=== PATIENT | female | born 1955 | race Caucasian/White ===

== ENCOUNTER 2022-08-05 22:49 | Emergency (ER) | payer MEDICARE, MEDICAID, SELFPAY ==
[2022-08-05 22:44] VITALS: BP 140/66; PULSE 80; RESP 18; TEMP 36.6; O2SAT 97
--- NOTE | 2022-08-05 22:45 | DI.CT_ITS ---
Exam(s) CT ABDOMEN PELVIS CTA EXAM: CT ABDOMEN PELVIS CTA CLINICAL HISTORY: epigastric and abd pain, eval GB and mesentery. TECHNIQUE: Imaging Protocol: Axial CT angiography was performed with multi-slice acquisition and m ulti-planar and/or 3D reconstructions. CONTRAST MATERIAL: Intravenous: Omnipaque 350 Contrast volume:100mL Oral: No COMPARISON: No exams were available for comparison FINDINGS: ABDOMEN AND PELVIS: Abdomen: Celiac axis/mesenteric arteries: No evidence of occlusion or significant stenosis. Renal Arteries: No evidence of occlusion or significant stenosis. There is a single renal artery perf using each kidney. Aorta: No evidence of occlusion or significant stenosis. No aneurysm or dissection. Pelvis: Iliac Arteries: No evidence of occlusion or significant stenosis. Common Femoral Arteries: No evidence of occlusion or significant stenosis. ABDOMEN: Lung bases: Unremarkable. There is a tiny hiatal hernia. Liver: Normal density. No measurable mass. Portal, Superior Mesenteric, and Splenic Veins: Unremarkable. Gallbladder and Biliary Tract: No radiodense calculus or dilation. The gallbladder is distended. Pancreas: Normal density, no abnormal calcifications or inflammatory process. Spleen: Normal. Adrenals: No masses seen. Kidneys: Normal size, contour and axis. No radiodense stones or obstructive uropathy. No masses seen. Bowel: No obstruction or bowel wall thickening. There is no evidence of appendicitis. Peritoneal Cavity: No ascites, collection or mesenteric inflammatory response. No free air. Lymph Nodes: Within normal limits. Bones: Within normal limits for the patient's age. Soft Tissues: There is a small fat containing umbilical hernia. PELVIS: Bladder: Symmetric distention, no gross wall thickening. Reproductive Organs: Unremarkable as visualized. Lymph Nodes: Within normal limits. Bones: Within normal limits. IMPRESSION: 1. Normal CT angiography of the abdomen and pelvis. 2. Unremarkable superior mesenteric vein, portal vein and splenic veins. 3. Distended gallbladder but no evidence of stones or biliary ductal dilatation. If further imaging is warranted, an ultrasound may be obtained. RADIATION DOSE DELIVERED: 2,108.42mGy.cm Total DLP DATA REPOSITORY: All CT scans at this facility are submitted to the National Radiology Data Registry (NRDR) Dose Index Registry (DIR) with the [employer] (A[employer]). RADIATION OPTIMIZATION: All CT scans at this facility use at least one of these dose optimization te chniques: automated exposure control; mA and/or kV adjustment per patient size (includes targeted exa ms where dose is matched to clinical indication); or iterative reconstruction.
--- NOTE | 2022-08-05 22:45 | RT.EKG_ITS ---
APPROVED REPORT Exam: Resting ECG Reason for Exam: chest pain Patient Location: E HR:78 bpm ECG Measurements Heart Rate 78 AXIS TN 162 P 79 QRSd 83 QRS 20 QT 382 T 59 QTc 435 Conclusion Sinus rhythm...normal P axis, V-rate 60- 99 Ventricular premature complex...V complex w/ short R-R interval Aberrant conduction of SV complex(es)...aberrant shape, TN 80-220 Physician: no stemi
--- NOTE | 2022-08-05 23:00 | DI.CT_ITS ---
Exam(s) CT HEAD WO EXAM: CT HEAD WO CLINICAL HISTORY: confused, altered. TECHNIQUE: Imaging Protocol: Axial computed tomography images with coronal and sagittal reformatted images were created and reviewed COMPARISON: No exams were available for comparison FINDINGS: Ventricles and Extra axial spaces: Normal in size and morphology for the patient's age. Hemorrhage: None. Cerebral parenchyma: There is no acute territorial infarct. Clemons-white matter differentiation is wel l maintained. Midline shift: None. Brainstem/Cerebellum: Normal. Calvarium: Normal. Visualized Paranasal sinuses/Mastoids: Clear. Soft Tissues: Unremarkable. IMPRESSION: No acute intracranial process. RADIATION DOSE DELIVERED: 772.25mGy.cm Total DLP DATA REPOSITORY: All CT scans at this facility are submitted to the National Radiology Data Registry (NRDR) Dose Index Registry (DIR) with the [employer] (ACR). RADIATION OPTIMIZATION: All CT scans at this facility use at least one of these dose optimization te chniques: automated exposure control; mA and/or kV adjustment per patient size (includes targeted exa ms where dose is matched to clinical indication); or iterative reconstruction.
[2022-08-05] MEDS: Normal Saline 1,000 ML 1000 ML IV (23:08)
[2022-08-05] MEDS: MORPHine 4 MG/ML SYR IVP (23:09)
--- NOTE | 2022-08-05 23:12 | W.ED.GENAD ---
Discharge Plan Disposition Patient Disposition: Home Condition: Good Discharge Details Chief Complaint: Abd Prob Clinical Impression: Biliary colic Primary Care Provider: Unknown,Unknown ED Provider: Mervin Dubon Discharge Instructions Instructions: Abdominal Pain (ED) Additional Instructions: At this time your work-up has returned and is very reassuring. Your gallbladder is slightly enlarged, but does not need surgical intervention. I suspect your gallbladder was spasming and this caused your pain. Because of it is important to get an ultrasound for further evaluation. Please call the number that was provided to you for the ultrasound department to set this up for Sunday. Please follow-up closely with the surgeons. We have included their phone numbers here. We have placed a referral for them. Please avoid greasy foods or fatty foods. Follow-up closely with your primary care provider. If you notice any worsening of your symptoms, or any new symptoms such as vomiting, diarrhea, fever, chills, shortness of breath, chest pain, numbness, weakness, or fainting , please return immediately to the emergency department for reevaluation. Please follow up with your primary care provider as soon as possible for reassessment and reevaluation. As always, it was a pleasure participating in your medical care today. Referrals: Tiburcio Hernandez MD [ [facility] STAFF PHYSICIAN] - Lou Bower DO [OSTEOPATHIC DOCTOR] - Medical Decision Making 67-year-old female with a past medical history of blindness, no other significant medical problems per patient, presents today for epigastric pain. Patient states its been present for the last few hours. It occurred after she ate dinner. She had canned chicken for dinner. Pain is sharp, it comes and goes in waves. It is in the epigastric region. No radiation anywhere else. She denies any chest pain. She denies any shortness of breath. She denies any vomiting or diarrhea but does admit to nausea. She denies previous abdominal surgeries or any pain like this in the past. No other complaints at this time. No urinary complaints or bowel complaints. Physical exam demonstrates mild epigastric tenderness. No signs of an acute surgical abdomen. However after exam the patient seems to have intermittent waves of severe pain which comes and goes rather rapidly. She denies any vomiting. Dry mucous membranes are present. Vital signs are otherwise stable. Differential is broad but includes obstruction, aortic or mesenteric pathology, gallbladder pathology or just enteritis. We will treat the patient's pain, monitor closely, rehydrate and reassess. 1:19 AM Patient's pain is improved but not resolved. Laboratory work-up demonstrates a white count of 14, mild left shift. Electrolytes stable. Bilirubin stable. Alk phos elevated. Lipase normal. Gallbladder shows a distended gallbladder with questionable thickening. Differential remains cholecystitis versus biliary colic. I did speak with Dr. Blancas. No ultrasound is currently available for further diagnostic evaluation. We will keep the patient here in the emergency department for the next 4 hours. We will get repeat labs at 5 AM, and continue to monitor her pain and symptoms. Surgery does recommend holding off on antibiotics for the time being. We will monitor closely and reassess. At this time the patient does not show evidence of an acute surgical abdomen. 6:10 AM laboratory work-up has returned, no transaminitis, white count is downtrending. Alk phos is stable, bilirubin stable. On reassessment the patient is feeling much better. Repeat exam shows no abdominal tenderness whatsoever. No evidence of surgical abdomen. I do suspect that the patient may have had an episode of biliary colic that caused her symptoms. Patient is stable for discharge. Discussed red flags for which to return. I have extensively reviewed the treatment plan and discharge instructions with the patient. I have addressed all patient concerns at this time. The patient was made aware of what symptoms to monitor for that would warrant a return to the emergency department. Discussed the plan with the patient, they demonstrate verbal understanding and agreement with our assessment and plan at this time. The documentation in this chart was dictated using [employer] dictation software. Please excuse any dictation errors. FINDINGS: Brain: Cerebral sulci show bilateral symmetry with no supratentorial mass or mass effect detected. Brainstem and cerebellum are unremarkable. There is no evidence of acute transcortical infarction or recent intracranial hemorrhage. Cerebral ventricles: Ventricular and cisternal spaces are normal in size and configuration and there is no midline shift or hydrocephalus seen. Paranasal sinuses: Focal mucosal density is seen along the right lateral margin of the sphenoid sinus and involving a few scattered bilateral ethmoidal lamellae with other paranasal sinuses grossly clear throughout. Mastoid air cells: Grossly clear bilaterally. Bones/joints: Bony calvarium and skull base are intact and no acute fractures are detected. Soft tissues: Unremarkable. IMPRESSION: Unremarkable noncontrast head CT with no evidence of an acute intracranial process. Thank you for allowing us to participate in the care of your patient. FINDINGS: Aorta: No aortic aneurysm. No aortic dissection. Celiac trunk and mesenteric arteries: No occlusion or significant stenosis. Renal arteries: No occlusion or significant stenosis. Right iliac arteries: No occlusion or significant stenosis. Left iliac arteries: No occlusion or significant stenosis. Liver: No mass. Gallbladder and bile ducts: Gallbladder is distended, cannot rule out mild thickening of the gallbladder wall. No calcified stones. No ductal dilation. Pancreas: Unremarkable. No mass. No ductal dilation. Spleen: Unremarkable. No splenomegaly. Adrenal glands: Unremarkable. No mass. Kidneys and ureters: Unremarkable. No solid mass. No hydronephrosis. Stomach and bowel: Small hiatal hernia containing proximal stomach. No mechanical bowel obstruction. No mucosal thickening. Appendix: No evidence of appendicitis. Intraperitoneal space: Unremarkable. No free air. No significant fluid collection. Lymph nodes: Unremarkable. No enlarged lymph nodes. Urinary bladder: Unremarkable. No mass. Reproductive: Unremarkable as visualized. Bones/joints: No acute fracture. Soft tissues: Unremarkable. IMPRESSION: Unremarkable CTA. Distended gallbladder, cannot rule out mild thickening of the gallbladder wall. No calcified stones identified. No biliary ductal dilatation. If further evaluation is desired, consider right upper quadrant sonogram. Thank you for allowing us to participate in the care of your patient. Dictated and Authenticated by: João Krueger MD 08/06/2022 12:36 AM Eastern Time ([place] & [place]) HPI General Date/Time Provider Initiated Documentation: 08/05/22 22:59. HPI Narrative: 67-year-old female with a past medical history of blindness, no other significant medical problems per patient, presents today for epigastric pain. Patient states its been present for the last few hours. It occurred after she ate dinner. She had canned chicken for dinner. Pain is sharp, it comes and goes in waves. It is in the epigastric region. No radiation anywhere else. She denies any chest pain. She denies any shortness of breath. She denies any vomiting or diarrhea but does admit to nausea. She denies previous abdominal surgeries or any pain like this in the past. No other complaints at this time. No urinary complaints or bowel complaints. Related Data Allergies Allergy/AdvReac Type Severity Reaction Status Date / Time aspirin Allergy GI Upset Unverified 08/05/22 23:10 General Stated Complaint: Abd Prob IRISH: 3 Review of Systems All systems reviewed & are unremarkable except as noted in HPI and below PFSH All Active Problems (Updated 08/06/22 @ 06:14 by Mervin Dubon DO) Biliary colic (Acute) Family History Mother No problems noted. Father No problems noted. Brother No problems noted. Social History Smoking/Tobacco Use Status: Never Smoking risk assessment performed?: Yes Alcohol Intake: never Substance use type: does not use Exam Narrative Exam Narrative: 1.Const: Well-nourished, Well-developed, appearing stated age 2.Eyes: PERRL, no conjunctival injection, and symmetrical lids. 3.ENT: Atraumatic external nose and ears. Notably dry MM. Neck: Symmetric, trachea midline, No thyromegaly. 4.CVS: +S1/S2, No murmurs or gallops. Peripheral pulses 2+ and equal in all extremities. Brisk capillary refill in all extremities. 5.RESP: Unlabored respiratory effort. Clear to auscultation bilaterally. No wheezes rales or rhonchi 6.GI: Soft, nondistended, no guarding or rebound. Mild epigastric tenderness on palpation, mild right upper quadrant tenderness. Negative Lemos sign. No pain or McBurney's point. 7.MSK: Normocephalic/Atraumatic, Extremities w/o deformity or ttp No cyanosis or clubbing, Normal movement of all extremities 8.Skin: Warm, Dry. No rashes or lesions. 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 Sensation grossly intact, no focal neurologic deficits. 10.Psych: (AAO) x3. Appropriate mood and affect Course Vital Signs Vital signs: Vital Signs Temperature 36.6 C 08/05/22 22:44 Pulse 80 08/05/22 22:44 Respiratory Rate 18 08/05/22 22:44 Blood Pressure 140/66 08/05/22 22:44 Pulse Oximetry 97 08/05/22 22:44 Temperature 36.6 C 08/05/22 22:44 Temperature Source Skin 08/05/22 22:44 Pulse 80 08/05/22 22:44 Respiratory Rate 18 08/05/22 22:44 Respiratory Effort 08/05/22 22:44 Blood Pressure 140/66 08/05/22 22:44 Blood Pressure Position Sitting 08/05/22 22:44 Pulse Oximetry 97 08/05/22 22:44 Oxygen Delivery Method Room Air 08/05/22 22:44 Oxygen Flow Rate 0 08/05/22 22:44 Pain Level 10 08/05/22 22:44
[2022-08-05 23:18] LABS: Abs Immature Grans 0.06 10^3/uL (0.0-0.06); Absolute Basophil Count 0.04 10^3/uL (0.0-0.2); Absolute Eosinophil Count 0.15 10^3/uL (0.0-0.7); Absolute Lymphocyte Count 1.59 10^3/uL (1.2-3.4); Absolute Monocyte Count 0.64 10^3/uL (0.1-0.8); Absolute Neutrophil Count 12.13 10^3/uL (1.2-6.7); BE (Venous) -1 mmol/L (-2-3); Basophils % 0.3; HCO3 (Venous) 24 mmol/L (23-28); HCT 42.4 % (36.0-46.0); HGB 13.7 g/dL (11.2-15.7); Immature Grans % 0.4; Lymphocytes % 10.9; MCH 28.5 pg (27.0-33.0); MCHC 32.3 % (32.0-36.0); MCV 88 fL (80-95); MPV 9.7 fL (8.0-11.0); Monocytes % 4.4; O2 Sat (Venous) 59 %; Platelet Count 351 10^3/uL (130-400); RDW 12.7 % (11.7-14.6); RDW-SD 41.4 fL; TCO2 (Venous) 22 mmol/L (24-29); WBC 14.62 10^3/uL (4.4-10.8); pCO2 (Venous) 42 mmHg (41-51); pH (Venous) 7.37 (7.31-7.41); pO2 (Venous) 33 mmHg
[2022-08-05 23:30] LABS: Lipase 50 U/L (16-77)
[2022-08-05 23:32] LABS: PTT Activated 22.5 sec (21.0-27.5); Prothrombin Time 9.9 sec (9.3-11.0)
[2022-08-05 23:35] LABS: ALT 24 U/L (14-59); AST 20 U/L (15-37); Albumin 3.7 g/dL (3.4-5.0); Alkaline Phosphatase 136 U/L (46-116); Anion Gap 10.5 mmol/L (3-11); BUN 35 mg/dL (7-18); Bilirubin, Total 0.2 mg/dL (0.2-1.0); CO2 24.5 mmol/L (21.0-32.0); CREATININE 1.1 mg/dL (0.55-1.02); Calcium 8.8 mg/dL (8.5-10.1); Chloride 101 mmol/L (98-107); Estimated GFR 55.42 (mL/min/1.73m2); Glucose 133 mg/dL (74-106); Sodium 136 mmol/L (136-145); Total Protein 6.8 g/dL (6.4-8.2); Troponin I < 50 ng/L (<or=60)
[2022-08-05] MEDS: Omnipaque 350 MG/ML 100 ML BTL IJ (23:43)
[2022-08-05] MEDS: Normal Saline - Diluent 50 ML VIAL IJ (23:44)
[2022-08-05 23:45] LABS: ETHANOL BLOOD < 3.0 mg/dL (<10)
--- NOTE | 2022-08-06 00:03 | DI.VRAD_ITS ---
PROCEDURE INFORMATION: Exam: CT Head Without Contrast Exam date and time: 08/05/2022 11:23 PM Age: 67 years old Clinical indication: Other: AMS, confusion TECHNIQUE: Imaging protocol: Computed tomography of the head without contrast. COMPARISON: No relevant prior studies available. FINDINGS: Brain: Cerebral sulci show bilateral symmetry with no supratentorial mass or mass effect detected. Brainstem and cerebellum are unremarkable. There is no evidence of acute transcortical infarction or recent intracranial hemorrhage. Cerebral ventricles: Ventricular and cisternal spaces are normal in size and configuration and there is no midline shift or hydrocephalus seen. Paranasal sinuses: Focal mucosal density is seen along the right lateral margin of the sphenoid sinus and involving a few scattered bilateral ethmoidal lamellae with other paranasal sinuses grossly clear throughout. Mastoid air cells: Grossly clear bilaterally. Bones/joints: Bony calvarium and skull base are intact and no acute fractures are detected. Soft tissues: Unremarkable. IMPRESSION: Unremarkable noncontrast head CT with no evidence of an acute intracranial process. Dictated and Authenticated by: Quinton Wolfe MD. Ordering:ABEL Jeffries MD
[2022-08-06 01:21] LABS: Bilirubin Negative (Negative); Blood Small (Negative); Clarity Clear (Clear); Glucose Negative (Negative); Ketones 15 mg/dL (Negative); Leukocyte Esterase Negative (Negative); Nitrite Negative (Negative); Specific Gravity 1.015 (1.005-1.025); Urobilinogen 0.2 EU/dL (Up TO 0.2); pH 5.5 (5-8)
[2022-08-06 01:26] LABS: Bacteria Rare HPF (Negative); C & S Indicated? No; Casts Negative LPF (Negative); Crystals Negative HPF (Negative); Epithelial Cells Rare HPF (Negative); Mucus Negative (Negative); WBC Negative HPF (0-5)
[2022-08-06 02:26] LABS: Troponin I < 50 ng/L (<or=60)
[2022-08-06] MEDS: Ketorolac 15 MG/ML VIAL IVP (02:51)
[2022-08-06 04:17] VITALS: BP 126/53; PULSE 89; RESP 18; O2SAT 99
[2022-08-06 05:35] LABS: Abs Immature Grans 0.04 10^3/uL (0.0-0.06); Absolute Lymphocyte Count 2.37 10^3/uL (1.2-3.4); Absolute Neutrophil Count 10.46 10^3/uL (1.2-6.7); Basophils % 0.4; Eosinophils % 1.1; HCT 38.9 % (36.0-46.0); HGB 12.8 g/dL (11.2-15.7); Immature Grans % 0.3; Lymphocytes % 16.9; MCH 29.2 pg (27.0-33.0); MCHC 32.9 % (32.0-36.0); MCV 89 fL (80-95); MPV 9.7 fL (8.0-11.0); Monocytes % 6.8; Neutrophils % 74.5; Platelet Count 330 10^3/uL (130-400); RBC 4.38 10^6/uL (3.93-5.22); RDW 12.8 % (11.7-14.6); RDW-SD 41.8 fL; WBC 14.04 10^3/uL (4.4-10.8)
[2022-08-06 05:36] LABS: Absolute Basophil Count 0.06 10^3/uL (0.0-0.2); Absolute Eosinophil Count 0.15 10^3/uL (0.0-0.7); Absolute Monocyte Count 0.95 10^3/uL (0.1-0.8)
[2022-08-06 05:57] LABS: ALT 27 U/L (14-59); AST 23 U/L (15-37); Albumin 3.3 g/dL (3.4-5.0); Alkaline Phosphatase 129 U/L (46-116); Anion Gap 11.4 mmol/L (3-11); BUN 24 mg/dL (7-18); Bilirubin, Total 0.3 mg/dL (0.2-1.0); CO2 23.6 mmol/L (21.0-32.0); CREATININE 0.8 mg/dL (0.55-1.02); Calcium 8.5 mg/dL (8.5-10.1); Chloride 104 mmol/L (98-107); Estimated GFR 81.21 (mL/min/1.73m2); Glucose 93 mg/dL (74-106); Potassium 3.8 mmol/L (3.5-5.1); Sodium 139 mmol/L (136-145); Total Protein 6.7 g/dL (6.4-8.2)
--- NOTE | 2022-08-06 06:22 | NUR.NOTE ---
Referral sent to DI for patient follow up for Epigastric Pain Enlarged GB Nursing Note:
[2022-08-06 06:29] LABS: ALT 24 U/L (14-59); AST 23 U/L (15-37); Albumin 3.4 g/dL (3.4-5.0); Alkaline Phosphatase 129 U/L (46-116); Bilirubin, Direct 0.1 mg/dL (0.0-0.2); Bilirubin, Total 0.3 mg/dL (0.2-1.0); Total Protein 6.7 g/dL (6.4-8.2)
--- NOTE | 2022-08-08 08:05 | NUR.NOTE ---
Nursing Note: Rosalva QUIJANO called stating unable to get in touch witih patient to schedule outpt US. I called the residence and was able to speak with the patient and she stated that she is feeling pretty good and that she was not going to do the test. That she had done enough tests. SAMM notified.
== END 2022-08-06 06:35 | disposition home or self-care (01) ==
PROVIDERS: Emergency Provider Student in an Organized Health Care Education/Training Program
DX: K80.50 Calculus of bile duct without cholangitis or cholecystitis without obstruction (principal); K82.8 Other specified diseases of gallbladder; R74.8 Abnormal levels of other serum enzymes; R10.13 Epigastric pain
CPT/HCPCS: 36415; 80048; 80053; 80076; 82805; 83690; 93005; 96361; 96374; 96375; 99285; 70450; 74174; 80320; 81003; 81015; 83605; 84484; 85025; 85610; 85730; 93010; J1885; J2270; J3490